=== PATIENT | male | born 1990 | race Hispanic/Latino ===

== ENCOUNTER → 2020-03-22 | Outpatient (CLI) | payer OTHER ==
--- NOTE | 2020-03-22 20:29 | REP ---
INDICATION: SCIATICA RIGHT SIDE. COMPARISON: None. TECHNIQUE: There are five views. FINDINGS: Vertebral body heights, interspacing and alignment are normal except for L5-S1 disc space narrowing suggestive of degenerative disc disease at this level. The pedicles, facets and sacroiliac articulations are unremarkable. There is no spondylolysis or spondylolisthesis. IMPRESSION: L5-S1 degenerative disc disease. <Electronically signed by Manish Jean Baptiste > 03/22/202024
--- NOTE | 2020-03-22 20:30 | REP ---
INDICATION: SCIATICA RIGHT SIDE. COMPARISON: None. TECHNIQUE: There are four views. FINDINGS: Mineralization and joint spaces are normal. There is no fracture or dislocation. There are no calcifications or foreign bodies. IMPRESSION: Essentially negative sacrum and coccyx. <Electronically signed by Manish Jean Baptiste > 03/22/202025
== END ==
LOC: M WUC 16:28
PROVIDERS: ATTEND Physician Assistant
DX: M54.31 Sciatica, right side (principal); M51.37 Other intervertebral disc degeneration, lumbosacral region

== ENCOUNTER → 2020-09-14 | Outpatient (CLI) | payer OTHER ==
--- NOTE | 2020-09-15 13:30 | ECHO ---
ECHOCARDIOGRAM DATE OF PROCEDURE: 09/14/2020 Age: 29 Gender: Height: Weight: REFERRING PROVIDER: Dr. Tyler Logan. PATIENT LOCATION: Outpatient. REASON FOR THE TESTING: Chest pain. 2D MEASUREMENTS: IVS 0.9 cm LV 4.6 cm LVPW 0.8 cm LA 2.6 cm Aorta 3.4 cm DOPPLER MEASUREMENT Mitral E 0.5 Mitral A 0.4 with a ratio of 1.3 Maximum tricuspid valve velocity 2.0 m/s 2D COMMENTS: 1. Normal left ventricular size, wall thickness, and normal global left ventricular systolic function. The estimated left ventricular systolic ejection fraction is 60 to 65%. 2. Normal left atrium. Normal right atrium and right ventricle. 3. The atrial septum appeared to be normal without evidence of defect or shunt. 4. Normal aortic root. 5. No pericardial effusion seen. 6. The aortic valve, mitral valve, tricuspid valve, and pulmonic valve appeared to be normal. The proximal pulmonary artery branches were not well visualized. 7. The inferior vena cava was not visualized. DOPPLER: Doppler detects trace mitral regurgitation, trace tricuspid regurgitation, and trace pulmonic regurgitation. The calculated pulmonary artery systolic pressure was normal. Assessment of the left ventricular diastolic function also appeared to be normal. IMPRESSION: 1. Normal global left ventricular systolic and diastolic function. 2. Trace mitral regurgitation. 3. Trace tricuspid regurgitation with a normal calculated pulmonary artery systolic pressure. 4. Trace pulmonic regurgitation.
== END ==
LOC: M CARPUL 10:41
PROVIDERS: ATTEND Internal Medicine
DX: R07.9 Chest pain, unspecified (principal); I36.0 Nonrheumatic tricuspid (valve) stenosis